=== PATIENT | female | born 1995 | race Caucasian/White ===

== ENCOUNTER 2018-01-14 09:02 | Emergency (ER) | payer OTHER ==
[2018-01-14] MEDS: NS(*) 0.9% 1000 ML BAG 1,000 ML IV ONE ×2 (09:00→09:34)
[2018-01-14] MEDS ORDERED: NS(*) 0.9% 1000 ML BAG 1,000 ML IV ONE (09:08)
[2018-01-14] MEDS: NALOXONE HCL 0.4 MG/ML VIAL IVP ONE (09:10)
[2018-01-14 09:27] LABS: PLATELET COUNT, AUTOMATED 327 K/uL (150-450)
[2018-01-14] MEDS ORDERED: MIDAZOLAM 2 MG/2 ML VIAL IVP ONE (09:40)
--- NOTE | 2018-01-14 09:54 | ER Report ---
History and Physical Time Seen By MD: 09:01 HESHAM/FLAQUITA CHIEF COMPLAINT: Altered mental status, unresponsive HISTORY OF PRESENT ILLNESS: Patient is a 22-year-old female history is limited due to urgency of condition. Patient was brought in in the back of a private vehicle after suffering a 2nd seizure this morning. According to the patient's boyfriend the patient had a few alcohol drinks last evening there is no history of report of any drug use. Boyfriend states that they went to sleep around 10 PM and patient was normal. Around 7 AM the patient had a seizure-like last approximately 2-3 minutes it was tonic-clonic in nature and the patient did have a brief postictal phase and a return to normal baseline mental status. However after she returned to being fully awake she was complaining of severe headache, that her head was on fire, and that she felt her head was going to explode. The boyfriend tried to give her some water and ibuprofen she subsequently suffered another seizure just prior to arrival to the emergency department. As far as we know the patient has no other active medical problems other than depression for which she does take medications for. Boyfriend does admit that she's had "seizures in the past" but she currently is not on any seizure medicine that we are aware of. The only medications that we could find that the patient takes is Effexor. She takes 187.5 grams daily. She had apparently in the past been on clonidine and Paxil but it is unclear whether she is currently taking these medications. REVIEW OF SYSTEMS: Review of systems is limited as patient is unresponsive Neurological: Boyfriend reports that she did complain of headache prior to seizure Psychiatric: Boyfriend reports she has a history of depression. Allergies: Coded Allergies: amoxicillin (Verified Allergy, Mild, HIVES, 01/14/18) Home Meds Reported Medications Venlafaxine Hcl (EFFEXOR XR) 150 Mg Cap.er.24h, 150 MG PO QDAY 01/14/18 Venlafaxine Hcl (EFFEXOR XR) 37.5 Mg Cap.er.24h, 37.5 MG PO QDAY 01/14/18 Past Medical/Surgical History Depression, "seizure" Smoking Status: Never Smoker Hx Alcohol Use: Yes (a "few drinks" last evening) Constitutional Vital Sign - Last 24 Hours 01/14/18 01/14/18 01/14/1801/14/18 09:10 09:39 09:58 10:00 Pulse 126 Resp 8 B/P (MAP) 157/106 (123) 150/97 (114) Pulse Ox 98 O2 Flow Rate 15.0 FiO2 35.0 01/14/18 01/14/18 01/14/18 01/14/18 10:05 10:10 10:15 10:20 Pulse 140 Resp 19 B/P (MAP) 147/94 (111) 141/84 (103) Pulse Ox 99 98 O2 Delivery Mechanical Ventilator FiO2 35.0 01/14/18 01/14/18 01/14/18 01/14/18 10:20 10:30 10:35 10:40 Temp 97.5 Pulse 152 146 Resp 26 29 B/P (MAP) 138/92 (107) 138/92 (107) 109/82 (91) Pulse Ox 99 100 FiO2 30.0 01/14/18 01/14/18 01/14/18 01/14/18 10:45 10:50 11:00 11:10 Pulse 139 134 128 Resp 41 14 13 B/P (MAP) 118/84 (95) 100/61 (74) 106/73 (84) Pulse Ox 98 100 100 01/14/18 01/14/18 11:20 11:30 Pulse 138 142 Resp 14 13 B/P (MAP) 120/83 (95) 137/98 (111) Pulse Ox 99 97 Intake and Output 01/14/18 01/14/18 01/15/18 15:00 23:00 07:00 Intake Total 1220 ml Output Total 820 ml Balance 400 ml Physical Exam General/Constitutional: Patient is obtunded with sonorous respirations. Patient has a purplish hue to the extremities Head: Normocephalic and atraumatic. Eyes: Conjunctival are injected. Pupils are slightly dilated but reactive to light with good consensual response. Patient does have a right-sided fixed gaze. Ears:External canals are clear. Tympanic membranes are clear with normal landmarks and light reflex. Nares: No rhinorrhea or bleeding. Turbinates are pink and moist. Oropharyngeal: Mucous membranes and lips are dry. There is some blood along the side of the tongue. Along with an abrasion laterally to the tongue. Neck: Supple, no adenopathy. Cardiovascular: Heart is regular but tachycardic Pulmonary: Lungs noted for decreased breath sounds bilaterally. She is using accessory muscles of respiration Abdomen: Soft, nontender, no guarding or peritoneal signs. Extremities: No gross deformities, No peripheral cyanosis. Able to move all 4 extremities. Neuro: GCS is [id number]= 7 Skin: No rashes, skin is cool and peripherally mottled. Medical Decision Making Data Points Result Diagram: 01/14/18 0910 01/14/18 0910 Laboratory Hematology Test 01/14/18 09:10 01/14/18 09:15 01/14/18 11:10 01/14/18 11:28 Red Blood Count 5.16 M/uL (4.17-5.56) Mean Corpuscular Volume 103.8 fL (80.0-96.0) Mean Corpuscular Hemoglobin 32.9 pg (26.0-33.0) Mean Corpuscular Hemoglobin Concent 31.7 g/dL (32.0-36.0) Red Cell Distribution Width 14.1 % (11.5-14.5) Mean Platelet Volume 8.8 fL (7.2-11.1) Neutrophils (%) (Auto) 70.3 % (39.4-72.5) Lymphocytes (%) (Auto) 25.0 % (17.6-49.6) Monocytes (%) (Auto) 4.0 % (4.1-12.4) Eosinophils (%) (Auto) 0.4 % (0.4-6.7) Basophils (%) (Auto) 0.3 % (0.3-1.4) Nucleated RBC Relative Count (auto) 0.0 /100WBC Neutrophils # (Auto) 12.8 K/uL (2.0-7.4) Lymphocytes # (Auto) 4.5 K/uL (1.3-3.6) Monocytes # (Auto) 0.7 K/uL (0.3-1.0) Eosinophils # (Auto) 0.1 K/uL (0.0-0.5) Basophils # (Auto) 0.1 K/uL (0.0-0.1) Nucleated RBC Absolute Count (auto) 0.01 K/uL Carboxyhemoglobin 1.8 % (< 5.0) Sodium Level 153 mmol/L (137-145) Potassium Level 4.0 mmol/L (3.5-5.0) Chloride Level 108 mmol/L (98-107) Carbon Dioxide Level < 5 mmol/L (22-31) Blood Urea Nitrogen 6 mg/dl (7-18) Creatinine 1.20 mg/dl (0.52-1.04) Glomerular Filtration Rate Calc 57.3 Random Glucose 292 mg/dl (75-110) Lactate 26.5 mmol/L (0.7-2.1) Calcium Level 10.2 mg/dl (8.4-10.2) Magnesium Level 2.6 mg/dl (1.7-2.2) Total Bilirubin 0.4 mg/dl (0.2-1.3) Aspartate Amino Transf (AST/SGOT) 33 U/L (0-35) Alanine Aminotransferase (ALT/SGPT) 27 U/L (0-56) Alkaline Phosphatase 52 U/L (0-126) Ammonia 212 UMOL/L (9-33) Total Creatine Kinase 257 U/L (30-135) Troponin I 0.052 ng/ml Total Protein 9.3 gm/dl (6.3-8.2) Albumin 5.9 g/dl (3.5-5.0) Human Chorionic Gonadotropin, Qual Negative (NEGATIVE) Salicylates Level < 10 mg/L Salicylate Last Dose Date unk Acetaminophen Level < 10 ug/ml Serum Alcohol < 10 mg/dl Acetone, Qualitative Small Urine Color Yellow Urine Clarity Slightly-cloudy Urine pH 5.0 pH (4.8-9.5) Urine Specific Tina 1.014 Urine Protein 100 mg/dL (NEGATIVE) Urine Glucose (UA) Negative mg/dL (NEGATIVE) Urine Ketones Negative mg/dL (NEGATIVE) Urine Blood Moderate (NEGATIVE) Urine Nitrite Negative (NEGATIVE) Urine Bilirubin Negative (NEGATIVE) Urine Urobilinogen Negative mg/dL (0.2-1.9) Urine Leukocyte Esterase Negative (NEGATIVE) Urine RBC <1 /HPF (0-2/HPF) Urine WBC 1 /HPF (0-5/HPF) Urine Squamous Epithelial Cells Few /LPF (NONE-FEW) Urine Amorphous Crystals Few /HPF Urine Bacteria Few /HPF (NONE-FEW) Urine Hyaline Casts Few /LPF (NONE-FEW) Urine Mucus Few /HPF (NONE-FEW) Urine Opiates Screen Negative Urine Barbiturates Screen Negative Ur Tricyclic Antidepressants Screen Negative Urine Phencyclidine Screen Negative Urine Amphetamines Screen Negative Urine Benzodiazepines Screen Negative Urine Cocaine Screen Negative Urine Cannabinoids Screen Positive CSF Appearance Clear (CLEAR) CSF Color Colorless (COLORLESS) CSF WBC 0 /mm3 (0-5) CSF RBC 1 /mm3 CSF Glucose 68 mg/dl CSF Lactate Dehydrogenase 108 U/L CSF Total Protein 45 mg/dl (15-50) Haemophilus influenzae B Antigen Negative (NEGATIVE) Neisseria meningitidis A/Y Antigen Negative (NEGATIVE) Neisseria meningitidis C/W135 Ag Negative (NEGATIVE) N. meningitidis B/E.coli K1 Ag Negative (NEGATIVE) Group B Streptococcus Antigen Negative (NEGATIVE) Streptococcus pneumoniae Antigen Negative (NEGATIVE) Influenza Virus Type A (PCR) Negative (NEGATIVE) Influenza Virus Type B (PCR) Negative (NEGATIVE) Test 01/14/18 12:08 Blood Gas Puncture Site Left radial Blood Gas Patient Temperature 97.5 DEGREES Arterial Blood pH 7.33 (7.35-7.45) Arterial Blood Partial Pressure CO2 26 mmHg (32-37) Arterial Blood Partial Pressure O2 187 mmHg (60-80) Arterial Blood HCO3 14 mmol/L (20-26) Arterial Blood Oxygen Saturation 100 % (92-100) Arterial Blood Base Excess -12.0 mmol/L [place] Test Acceptable Oxygen Liters/Minute 30% Chemistry Test 01/14/18 09:10 01/14/18 09:15 01/14/18 11:10 01/14/18 11:28 White Blood Count 18.2 k/uL (4.5-11.0) Red Blood Count 5.16 M/uL (4.17-5.56) Hemoglobin 17.0 g/dL (12.0-16.0) Hematocrit 53.6 % (34.0-47.0) Mean Corpuscular Volume 103.8 fL (80.0-96.0) Mean Corpuscular Hemoglobin 32.9 pg (26.0-33.0) Mean Corpuscular Hemoglobin Concent 31.7 g/dL (32.0-36.0) Red Cell Distribution Width 14.1 % (11.5-14.5) Platelet Count 327 K/uL (150-450) Mean Platelet Volume 8.8 fL (7.2-11.1) Neutrophils (%) (Auto) 70.3 % (39.4-72.5) Lymphocytes (%) (Auto) 25.0 % (17.6-49.6) Monocytes (%) (Auto) 4.0 % (4.1-12.4) Eosinophils (%) (Auto) 0.4 % (0.4-6.7) Basophils (%) (Auto) 0.3 % (0.3-1.4) Nucleated RBC Relative Count (auto) 0.0 /100WBC Neutrophils # (Auto) 12.8 K/uL (2.0-7.4) Lymphocytes # (Auto) 4.5 K/uL (1.3-3.6) Monocytes # (Auto) 0.7 K/uL (0.3-1.0) Eosinophils # (Auto) 0.1 K/uL (0.0-0.5) Basophils # (Auto) 0.1 K/uL (0.0-0.1) Nucleated RBC Absolute Count (auto) 0.01 K/uL Carboxyhemoglobin 1.8 % (< 5.0) Glomerular Filtration Rate Calc 57.3 Lactate 26.5 mmol/L (0.7-2.1) Calcium Level 10.2 mg/dl (8.4-10.2) Magnesium Level 2.6 mg/dl (1.7-2.2) Total Bilirubin 0.4 mg/dl (0.2-1.3) Aspartate Amino Transf (AST/SGOT) 33 U/L (0-35) Alanine Aminotransferase (ALT/SGPT) 27 U/L (0-56) Alkaline Phosphatase 52 U/L (0-126) Ammonia 212 UMOL/L (9-33) Total Creatine Kinase 257 U/L (30-135) Troponin I 0.052 ng/ml Total Protein 9.3 gm/dl (6.3-8.2) Albumin 5.9 g/dl (3.5-5.0) Human Chorionic Gonadotropin, Qual Negative (NEGATIVE) Salicylates Level < 10 mg/L Salicylate Last Dose Date unk Acetaminophen Level < 10 ug/ml Serum Alcohol < 10 mg/dl Acetone, Qualitative Small Urine Color Yellow Urine Clarity Slightly-cloudy Urine pH 5.0 pH (4.8-9.5) Urine Specific Tina 1.014 Urine Protein 100 mg/dL (NEGATIVE) Urine Glucose (UA) Negative mg/dL (NEGATIVE) Urine Ketones Negative mg/dL (NEGATIVE) Urine Blood Moderate (NEGATIVE) Urine Nitrite Negative (NEGATIVE) Urine Bilirubin Negative (NEGATIVE) Urine Urobilinogen Negative mg/dL (0.2-1.9) Urine Leukocyte Esterase Negative (NEGATIVE) Urine RBC <1 /HPF (0-2/HPF) Urine WBC 1 /HPF (0-5/HPF) Urine Squamous Epithelial Cells Few /LPF (NONE-FEW) Urine Amorphous Crystals Few /HPF Urine Bacteria Few /HPF (NONE-FEW) Urine Hyaline Casts Few /LPF (NONE-FEW) Urine Mucus Few /HPF (NONE-FEW) Urine Opiates Screen Negative Urine Barbiturates Screen Negative Ur Tricyclic Antidepressants Screen Negative Urine Phencyclidine Screen Negative Urine Amphetamines Screen Negative Urine Benzodiazepines Screen Negative Urine Cocaine Screen Negative Urine Cannabinoids Screen Positive CSF Appearance Clear (CLEAR) CSF Color Colorless (COLORLESS) CSF WBC 0 /mm3 (0-5) CSF RBC 1 /mm3 CSF Glucose 68 mg/dl CSF Lactate Dehydrogenase 108 U/L CSF Total Protein 45 mg/dl (15-50) Haemophilus influenzae B Antigen Negative (NEGATIVE) Neisseria meningitidis A/Y Antigen Negative (NEGATIVE) Neisseria meningitidis C/W135 Ag Negative (NEGATIVE) N. meningitidis B/E.coli K1 Ag Negative (NEGATIVE) Group B Streptococcus Antigen Negative (NEGATIVE) Streptococcus pneumoniae Antigen Negative (NEGATIVE) Influenza Virus Type A (PCR) Negative (NEGATIVE) Influenza Virus Type B (PCR) Negative (NEGATIVE) Test 01/14/18 12:08 Blood Gas Puncture Site Left radial Blood Gas Patient Temperature 97.5 DEGREES Arterial Blood pH 7.33 (7.35-7.45) Arterial Blood Partial Pressure CO2 26 mmHg (32-37) Arterial Blood Partial Pressure O2 187 mmHg (60-80) Arterial Blood HCO3 14 mmol/L (20-26) Arterial Blood Oxygen Saturation 100 % (92-100) Arterial Blood Base Excess -12.0 mmol/L [place] Test Acceptable Oxygen Liters/Minute 30% Toxicology Test 01/14/18 09:10 01/14/18 09:15 Salicylates Level < 10 mg/L Salicylate Last Dose Date unk Acetaminophen Level < 10 ug/ml Serum Alcohol < 10 mg/dl Acetone, Qualitative Small Urine Opiates Screen Negative Urine Barbiturates Screen Negative Ur Tricyclic Antidepressants Screen Negative Urine Phencyclidine Screen Negative Urine Amphetamines Screen Negative Urine Benzodiazepines Screen Negative Urine Cocaine Screen Negative Urine Cannabinoids Screen Positive Urinalysis Test 01/14/18 09:15 Urine Color Yellow Urine Clarity Slightly-cloudy Urine pH 5.0 pH (4.8-9.5) Urine Specific Tina 1.014 Urine Protein 100 mg/dL (NEGATIVE) Urine Glucose (UA) Negative mg/dL (NEGATIVE) Urine Ketones Negative mg/dL (NEGATIVE) Urine Blood Moderate (NEGATIVE) Urine Nitrite Negative (NEGATIVE) Urine Bilirubin Negative (NEGATIVE) Urine Urobilinogen Negative mg/dL (0.2-1.9) Urine Leukocyte Esterase Negative (NEGATIVE) Urine RBC <1 /HPF (0-2/HPF) Urine WBC 1 /HPF (0-5/HPF) Urine Squamous Epithelial Cells Few /LPF (NONE-FEW) Urine Amorphous Crystals Few /HPF Urine Bacteria Few /HPF (NONE-FEW) Urine Hyaline Casts Few /LPF (NONE-FEW) Urine Mucus Few /HPF (NONE-FEW) Microbiology Microbiology Date/Time Source Procedure Growth Status 01/14/18 11:10 Cerebrospinal Fluid Gram Stain - Final Resulted 01/14/18 11:10 Cerebrospinal Fluid CSF Culture Pending Resulted EKG/Imaging EKG Interpretation EKG shows sinus tachycardia with slightly peaked T waves. Monitor Interpretation: Sinus Tachycardia Imaging FACILITY: [facility] [place] PATIENT NAME: Jessica Cleveland : 1995 MR: [id number] V: [id number] EXAM DATE: [id number] ORDERING PHYSICIAN: KIT ANTHONY TECHNOLOGIST: Location: [facility] [place] Patient: Jessica Cleveland : 1995 Visit/Account:[id number] Date of Sevice: 01/14/2018 EXAMINATION: Head CT without intravenous contrast History: Altered mental status TECHNIQUE: Contiguous axial images were obtained from the skull base to the vertex without intravenous contrast. One of the following dose optimization techniques was utilized in the performance of this exam: Automated exposure control; adjustment of the mA and/or kV according to the patient's size; or use of an iterative reconstruction technique. Specific details can be referenced in the facility's radiology CT exam operational policy. COMPARISON STUDIES: none FINDINGS: Visualized mastoid air cells / paranasal sinuses: negative Calvarium and scalp: negative White matter: negative Dural venous sinuses / arterial structures: negative Ventricles / sulci / fissures: negative Masses / hemorrhage / midline shift: negative Extra-axial spaces: negative IMPRESSION: Normal head CT. No evidence of a mass, acute ischemia or hemorrhage. Report Dictated By: Yusuf Hopson MD at 01/14/2018 10:12 AM Report E-Signed By: Yusuf Hopson MD at 01/14/2018 10:15 AM WSN:[id number] FACILITY: [facility] [place] PATIENT NAME: Jessica Cleveland : 1995 MR: [id number] V: [id number] EXAM DATE: ORDERING PHYSICIAN: KIT ANTHONY TECHNOLOGIST: Location: [facility] [place] Patient: Jessica Cleveland : 1995 Visit/Account:[id number] Date of Sevice: 01/14/2018 CHEST SINGLE AP History: Altered mental status Comparison none. FINDINGS: Lungs are clear, no effusion. No pneumothorax. Heart size within normal limits. Mediastinal contour within normal limits. Endotracheal tube is in good position terminating 4 cm above the rodney. IMPRESSION: No evidence of acute cardiopulmonary disease. Report Dictated By: Yusuf Hopson MD at 01/14/2018 10:15 AM Report E-Signed By: Yusuf Hopson MD at 01/14/2018 10:16 AM WSN:[id number] ED Course/Re-evaluation Clinical Indication for ER IV: Hydration, IV Access ED Course 01/14/2018 9:51:41 am I obtained of the patient's prescription from their home. Patient takes 2 different dosages Effexor. She takes 37.5 mg in one tablet along with 150 mg in a 2nd tablet once per day. No other medications were identified. As the patient was unresponsive with a GCS of 7 we will have decided to secure her airway with rapid sequence intubation. Please see our psych note for details of procedure. Patient has received approximately 800 mL of normal saline. Heart rate has dropped from approximately 150 bpm to 110 bpm. Initial blood sugar upon arrival by [facility]u-[facility]k was 253 mg/dL. Patient is currently in CT scan. My concern is with a history of seizure followed by headache and subsequent seizure and concerned about possible intracranial hemorrhage. I have updated the boyfriend with regard to her condition at this standpoint. There is a high likelihood she will require transport to a higher level of care. 01/14/2018 9:53:31 am Procedure: Rapid sequence intubation. Indication for the procedure was airway protection, respiratory distress . The patient was preoxygenated with 100% oxygen by face mask. The patient was given the following IV medications: 20 mg of etomidate followed by 40 mg of rocuronium. The patient was orally endotracheally intubated under direct visualization with a 7.5 ETT. In line stabilization was performed during the procedure. Tracheal intubation was confirmed with misting on the tube; breath sounds were auscultated equally bilaterally; appropriate color change with [place] [employer] CO2 detector. . The procedure was performed by myself. ET tube was secured at 25 cm at the teeth. Chest X-ray shows ETT at approximately 4 cm above the rodney. We will advance from 25 cm at the teeth 27 cm at the teeth. 01/14/2018 10:01:53 am bloodwork showing hemoconcentration along with hypernatremia sodium correcting to 155 with a glucose of approximately 300. Potassium of 4. Patient has an elevated MCV which suggests either a pernicious anemia versus chronic alcohol use. Acetaminophen screen was negative as was salicylate screen. Drug screen only positive for cannabinoids. Because of the frequent seizures, we'll load the patient with fosphenytoin at 15 PE/kg ( estimated weight of 65kg). I will discuss the case with the on-call hospitalist. She will likely require admission to the ICU here or potentially transport to a outside facility. 01/14/2018 10:17:18 am ABG shows a pH of 6.8, PCO2 of 54, PO2 of 132, bicarbonate of 9, O2 sat of 95% on 35% FiO2, base deficit of 26 At this time we will give an amp of bicarbonate and will also increase the patient's minute ventilation. 01/14/2018 10:49:30 am I did speak with the hospitalist [facility] [place] history physical exam all pertinent data was reviewed. They will be talking to the international banker but suspect that they should be able to take the patient for admission. They're requesting a lumbar puncture as well as broad- spectrum antibiotics which we will initiate now. 01/14/2018 11:13:34 am Procedure: Lumbar puncture. Indication: Responsive Her seizure was emergent boyfriend was made aware of reasoning for procedure explaining the risks including infection, bleeding, and neurologic damage, a lumbar puncture was performed after the patient was prepped and draped in the usual fashion. The back was anesthetized with 1% lidocaine. Approximately 4 cc of clear fluid was obtained. Opening pressure was not obtained. There were no complications. The procedure was performed by myself. He comes patient had nonpurposeful movements she did receive sedation and then 40 mg of Rocuronium in order to facilitate procedure. 01/14/2018 11:14:47 am I did speak with the patient's mother regarding her daughter's ED presentation hospital course and need to transfer to higher level of care. I did relay as much information as it possibly could with regard to her workup patient is critical but stable. Mother states that she is not aware that Skyler ever had a seizure disorder. Mother has no questions or concerns at time of disposition. Re-evaluation 01/14/2018 1:55:51 pm Addendum to the chart. I received a call from Dr. Arora from [facility] for [facility] the patient appears to be doing much better is now awake and alert and extubated. She called for results of CSF which I did relay. She requested that we add on an HSV PCR to the CSF fluid, I did speak with Josie kiya in her laboratory and she will add on this study. Decision to Disposition Date: Jan 14, 2018 Decision to Disposition Time: 11:19 Critical Care Time 90 minutes (excluding procedures) of direct patient care, discusion with consultatnts and updating family on status and disposition Depart Departure Latest Vital Signs Vital Signs Date Time Temp Pulse Resp B/P (MAP) Pulse Ox O2 Delivery O2 Flow Rate FiO2 01/14/18 11:30 142 13 137/98 (111) 97 01/14/18 10:35 97.5 01/14/18 10:20 30.0 01/14/18 10:05 Mechanical Ventilator 01/14/18 09:10 15.0 Impression: Primary Impression: Unresponsive Additional Impressions: Metabolic acidosis Dehydration Condition: Critical (but stable) Disposition: XFER TO [facility] (to [facility]) Problem Qualifiers KIT ANTHONY MD Jan 14, 2018 09:54
[2018-01-14] MEDS ORDERED: FOSPHENYTOIN(*) 500 MG/10 ML V 1,000 MG in NS(*) 0.9% 100 ML BAG 80 ML IVPB ONE (10:05)
[2018-01-14] MEDS ORDERED: SODIUM BICARB 8.4% 50 MEQ/50ML IV ONE (10:10)
--- NOTE | 2018-01-14 10:20 | RADIOLOGY IMAGING REPORT ---
FAC[place]: [facility] [place] PATIENT NAME: Jessica Cleveland : 1995 MR: [id number] V: [id number] EXAM DATE: ORDERING PHYSICIAN: KIT ANTHONY TECHNOLOGIST: Location: [facility] [place] Patient: Jessica Cleveland : 1995 Visit/Account:[id number] Date of Sevice: 01/14/2018 CHEST SINGLE AP History: Altered mental status Comparison none. FINDINGS: Lungs are clear, no effusion. No pneumothorax. Heart size within normal limits. Mediastinal contour w ithin normal limits. Endotracheal tube is in good position terminating 4 cm above the rodney. IMPRESSION: No evidence of acute cardiopulmonary disease. Report Dictated By: Yusuf Hopson MD at 01/14/2018 10:15 AM Report E-Signed By: Yusuf Hopson MD at 01/14/2018 10:16 AM WSN:[id number]
--- NOTE | 2018-01-14 10:20 | RADIOLOGY IMAGING REPORT ---
FACILITY: [facility] PATIENT NAME: Jessica Cleveland : 1995 MR: [id number] V: [id number] EXAM DATE: ORDERING PHYSICIAN: KIT ANTHONY TECHNOLOGIST: Location: [facility] [place] Patient: Jessica Cleveland : 1995 Visit/Account:[id number] Date of Sevice: 01/14/2018 EXAMINATION: Head CT without intravenous contrast History: Altered mental status TECHNIQUE: Contiguous axial images were obtained from the skull base to the vertex without intraven ous contrast. One of the following dose optimization techniques was utilized in the performance of th is exam: Automated exposure control; adjustment of the mA and/or kV according to the patient's size; or use of an iterative reconstruction technique. Specific details can be referenced in the facility 's radiology CT exam operational policy. COMPARISON STUDIES: none FINDINGS: Visualized mastoid air cells / paranasal sinuses: negative Calvarium and scalp: negative White matter: negative Dural venous sinuses / arterial structures: negative Ventricles / sulci / fissures: negative Masses / hemorrhage / midline shift: negative Extra-axial spaces: negative IMPRESSION: Normal head CT. No evidence of a mass, acute ischemia or hemorrhage. Report Dictated By: Yusuf Hopson MD at 01/14/2018 10:12 AM Report E-Signed By: Yusuf Hopson MD at 01/14/2018 10:15 AM WSN:[id number]
[2018-01-14] MEDS ORDERED: ROCURONIUM BROM 10 MG/ML 10 ML IVP ONE ×2 (10:35→10:45)
[2018-01-14] MEDS ORDERED: PROPOFOL(*)1000 MG/100 ML VIAL 100 ML IV PRN (10:35)
[2018-01-14] MEDS ORDERED: ETOMIDATE 20 MG/10 ML VIAL IVP ONE (10:35)
[2018-01-14] MEDS ORDERED: fentaNYL CITR 100 MCG/2 ML AMP IVP ONE ×2 (10:35→10:50)
--- NOTE | 2018-01-14 10:38 | EKG ---
FACILITY: [facility] [place] PATIENT NAME: ROHITH SENA : [id number] MR: [id number] V: [id number] EXAM DATE: ORDERING PHYSICIAN: KIT ANTHONY TECHNOLOGIST: MANJEET Test Reason : SEIZURE Blood Pressure : / mmHG Vent. Rate : 124 BPM Atrial Rate : 124 BPM P-R Int : 156 ms QRS Dur : 092 ms QT Int : 318 ms P-R-T Axes : 078 090 082 degrees QTc Int : 456 ms Sinus tachycardia Possible biatrial enlargement Rightward axis Relatively tall T waves in limb leads and V3-6 Borderline ECG No previous ECGs available Confirmed by BARB ARTHUR ([id number]) on 01/14/2018 4:14:17 PM Referred By: GABRIELLE Confirmed By:BARB ARTHUR
[2018-01-14] MEDS ORDERED: VANCOMYCIN(*) 1 GM VIAL 2 GM in NS(*) 0.9% 250 ML BAG 250 ML IVPB ONE (10:45)
[2018-01-14] MEDS ORDERED: CEFEPIME HCL 2 GM VIAL IVP ONE (10:45)
[2018-01-14] MEDS ORDERED: metroNIDAZOLE* 500MG/100ML BAG 100 ML IVPB ONE (10:45)
[2018-01-14 11:30] VITALS: BP 137/98
[2018-01-14] MEDS ORDERED: VENL37.594 PO (11:39)
[2018-01-14] MEDS ORDERED: VENL150C61 PO (11:39)
--- NOTE | 2018-01-14 11:56 | RADIOLOGY IMAGING REPORT ---
FACILITY: [facility] - [place] PATIENT NAME: Jessica Cleveland : 1995 MR: [id number] V: [id number] EXAM DATE: ORDERING PHYSICIAN: KIT ANTHONY TECHNOLOGIST: Location: [facility] - [place] Patient: Jessica Cleveland : 1995 Visit/Account:[id number] Date of Sevice: 01/14/2018 CHEST SINGLE AP History: Positioning Comparison radiograph obtained earlier same date. FINDINGS: Lungs are clear, no effusion. No pneumothorax. Heart size within normal limits. Mediastinal contour w ithin normal limits. Endotracheal tube remains in good position. NG tube partially visualized in the lower neck. This finding was called to the care provider. IMPRESSION: No evidence of acute cardiopulmonary disease. Report Dictated By: Yusuf Hopson MD at 01/14/2018 11:48 AM Report E-Signed By: Yusuf Hopson MD at 01/14/2018 11:53 AM WSN:[id number]
[2018-01-14] MEDS ORDERED: NALOXONE HCL 2 MG/2 ML SYR IVP ONE (12:25)
== END 2018-01-14 12:27 | disposition short-term general hospital (02) ==
LOC: ER 09:14
DX: E87.2 Acidosis (principal); E86.0 Dehydration; R40.20 Unspecified coma
CPT/HCPCS: 31500; 36600; 70450; 71045; 80305; 80320; 80329; 81001; 82009; 82140; 82375; 82550; 82784; 82803; 82945; 83605; 83615; 83735; 84157; 84443; 84484; 84703; 85025; 87040; 87070; 87088; 87205; 87502; 87529; 87899; 89050; 93005; 94002; 94770; 96361; 96365; 96367; 96375; 96376; 99291; 99292; C1758; J0692; J2250; J2310; J2704; J3010; J3370; J3490; J7030; J7050; Q2009; 82040; 82247; 82310; 82374; 82435; 82565; 82947; 84075; 84132; 84155; 84295; 84450; 84460; 84520; 99285

== ENCOUNTER → 2018-01-14 | Outpatient (REF) ==
[~2018-01-14] MED LIST: VENL150C61 PO; VENL37.594 PO
== END ==
LOC: AMB 11:00
PROVIDERS: ATTEND Nurse Practitioner
DX: Z02.9 Encounter for administrative examinations, unspecified (principal)

== ENCOUNTER → 2018-02-02 | Outpatient (CLI) | payer OTHER | LOC: LAB 11:30 | PROVIDERS: ATTEND Internal Medicine Cardiovascular Disease | DX: I50.9 Heart failure, unspecified (principal) | CPT/HCPCS: 36415; 82040; 82247; 82310; 82374; 82435; 82565; 82947; 84075; 84132; 84155; 84295; 84450; 84460; 84520 ==

== ENCOUNTER → 2018-02-23 | Outpatient (CLI) | payer OTHER | LOC: LAB 08:52 | PROVIDERS: ATTEND Internal Medicine Cardiovascular Disease | DX: I50.22 Chronic systolic (congestive) heart failure (principal) | CPT/HCPCS: 36415; 82310; 82374; 82435; 82565; 82947; 83880; 84132; 84295; 84520 ==

== ENCOUNTER 2018-04-06 13:00 | Emergency (ER) | payer OTHER ==
--- NOTE | 2018-04-06 13:12 | ER Report ---
History and Physical Time Seen By MD: 13:08 HPI/ROS CHIEF COMPLAINT: Anxiety and depression HISTORY OF PRESENT ILLNESS: This is a 22-year-old female who presents to the emergency department with her boyfriend for anxiety and depression. Patient according to her boyfriend has been agitated, tearful having depressive thoughts , for possibly one week. Patient is also tried to cut herself she does have a very superficial wound to the left forearm she also been scratching her left forearm. Patient does state that she has had suicidal thoughts but does not plan on acting on these. Patient is very tearful, agitated, clenching her teeth , patient states she does not want be here but under the direction of her boyfriend and her family she did come in for further evaluation. Patient denies chest pain, shortness of breath, headaches, nausea, vomiting or diarrhea. Does use marijuana. REVIEW OF SYSTEMS: Constitutional: No fever, no chills. Eyes: No discharge. ENT: No sore throat. Cardiovascular: No chest pain, no palpitations. Respiratory: No cough, no shortness of breath. Gastrointestinal: No abdominal pain, no vomiting. Genitourinary: No hematuria. Musculoskeletal: No back pain. Skin: No rashes. Neurological: No headache. Psych: As above. Allergies: Coded Allergies: amoxicillin (Verified Allergy, Mild, HIVES, 01/14/18) venlafaxine (Verified Allergy, Unknown, SEIZURES, 04/06/18) Home Meds Discontinued Reported Medications Venlafaxine Hcl (EFFEXOR XR) 150 Mg Cap.er.24h, 150 MG PO QDAY 01/14/18 Venlafaxine Hcl (EFFEXOR XR) 37.5 Mg Cap.er.24h, 37.5 MG PO QDAY 01/14/18 Past Medical/Surgical History Patient has a past medical and surgical history of cardiomyopathy, seizures, wears glasses, depression, anxiety suicide attempt, uses marijuana. Reviewed Nurses Notes: Yes Smoking Status: Never Smoker Hx Alcohol Use: Yes (a "few drinks" last evening) Constitutional Vital Sign - Last 24 Hours 04/06/18 04/06/18 04/06/18 04/06/18 13:03 13:03 13:15 13:30 Temp 97.9 Pulse 83 92 71 Resp 16 B/P (MAP) 126/89 126/89 (101) 107/74 (85) Pulse Ox 95 98 94 O2 Delivery Room Air 04/06/18 04/06/18 04/06/18 04/06/18 13:45 14:00 14:15 14:30 Pulse 94 74 83 83 B/P (MAP) 108/82 (91) Pulse Ox 98 95 96 95 04/06/18 04/06/18 04/06/18 04/06/18 14:45 14:50 15:00 15:05 Pulse 81 70 B/P (MAP) 103/73 (83) Pulse Ox 96 96 96 04/06/18 04/06/18 04/06/18 04/06/18 15:10 15:25 15:30 15:35 Pulse 74 80 70 B/P (MAP) 103/78 (86) Pulse Ox 96 96 96 04/06/18 04/06/18 04/06/18 15:40 15:45 15:46 Pulse 81 72 B/P (MAP) 106/78 (87) Pulse Ox 96 96 Physical Exam General Appearance: The patient is alert, has no immediate need for airway protection and no signs of toxicity, very tearful and anxious. Eyes: Pupils equal and round no pallor or injection. ENT, Mouth: Mucous membranes are moist. Respiratory: There are no retractions, lungs are clear to auscultation. Cardiovascular: Regular rate and rhythm. Gastrointestinal: Abdomen is soft and non tender, no masses, bowel sounds normal. Neurological: Alert and oriented 4. Moving all extremities. Following all commands. No focal neuro deficits. Skin: Warm and dry, no rashes. Very superficial scratch davidson to the left forearm no other identifiable injuries. Musculoskeletal: Neck is supple non tender. Extremities are nontender, nonswollen and have full range of motion. Psych: Making poor eye contact, very anxious and tearful, clenching hands making fists, jaws clenched obviously very agitated. 1-2 word answers. Psych reevaluation: Making good eye contact, interacting well, not tearful, not wringing her hands, not clenching her jaw. DIFFERENTIAL DIAGNOSIS: After history and physical exam differential diagnosis was considered for psychosis, depression, anxiety, suicidal ideation. Medical Decision Making Data Points Result Diagram: 04/06/18 1447 04/06/18 1447 Laboratory Hematology Test 04/06/18 13:20 04/06/18 14:47 Urine Color Yellow Urine Clarity Slightly-cloudy Urine pH 5.0 pH (4.8-9.5) Urine Specific Bagley 1.018 Urine Protein Negative mg/dL (NEGATIVE) Urine Glucose (UA) Negative mg/dL (NEGATIVE) Urine Ketones Negative mg/dL (NEGATIVE) Urine Blood Negative (NEGATIVE) Urine Nitrite Negative (NEGATIVE) Urine Bilirubin Negative (NEGATIVE) Urine Urobilinogen Negative mg/dL (0.2-1.9) Urine Leukocyte Esterase Negative (NEGATIVE) Urine RBC None /HPF (0-2/HPF) Urine WBC 1 /HPF (0-5/HPF) Urine Squamous Epithelial Cells Many /LPF (</=FEW) Urine Bacteria Few /HPF (NONE-FEW) Urine Mucus Few /HPF (NONE-FEW) Urine HCG, Qualitative Negative (NEGATIVE) Urine Opiates Screen Negative Urine Barbiturates Screen Negative Ur Tricyclic Antidepressants Screen Negative Urine Phencyclidine Screen Negative Urine Amphetamines Screen Negative Urine Benzodiazepines Screen Negative Urine Cocaine Screen Negative Urine Cannabinoids Screen Positive Red Blood Count 4.54 M/uL (4.17-5.56) Mean Corpuscular Volume 93.2 fL (80.0-96.0) Mean Corpuscular Hemoglobin 33.1 pg (26.0-33.0) Mean Corpuscular Hemoglobin Concent 35.6 g/dL (32.0-36.0) Red Cell Distribution Width 12.8 % (11.5-14.5) Mean Platelet Volume 7.8 fL (7.2-11.1) Neutrophils (%) (Auto) 66.5 % (39.4-72.5) Lymphocytes (%) (Auto) 25.0 % (17.6-49.6) Monocytes (%) (Auto) 6.8 % (4.1-12.4) Eosinophils (%) (Auto) 1.3 % (0.4-6.7) Basophils (%) (Auto) 0.4 % (0.3-1.4) Nucleated RBC Relative Count (auto) 0.0 /100WBC Neutrophils # (Auto) 5.8 K/uL (2.0-7.4) Lymphocytes # (Auto) 2.2 K/uL (1.3-3.6) Monocytes # (Auto) 0.6 K/uL (0.3-1.0) Eosinophils # (Auto) 0.1 K/uL (0.0-0.5) Basophils # (Auto) 0.0 K/uL (0.0-0.1) Nucleated RBC Absolute Count (auto) 0.00 K/uL Sodium Level 139 mmol/L (137-145) Potassium Level 3.7 mmol/L (3.5-5.0) Chloride Level 105 mmol/L (98-107) Carbon Dioxide Level 21 mmol/L (22-31) Blood Urea Nitrogen 13 mg/dl (7-18) Creatinine 0.70 mg/dl (0.52-1.04) Glomerular Filtration Rate Calc > 60.0 Random Glucose 86 mg/dl (75-110) Calcium Level 9.5 mg/dl (8.4-10.2) Magnesium Level 1.9 mg/dl (1.7-2.2) Total Bilirubin 1.5 mg/dl (0.2-1.3) Aspartate Amino Transf (AST/SGOT) 27 U/L (0-35) Alanine Aminotransferase (ALT/SGPT) 29 U/L (0-56) Alkaline Phosphatase 43 U/L (0-126) Total Protein 7.6 g/dl (6.3-8.2) Albumin 4.6 g/dl (3.5-5.0) Salicylates Level < 10 mg/L Salicylate Last Dose Date unk Acetaminophen Level < 10 ug/ml Serum Alcohol < 10 mg/dl Chemistry Test 04/06/18 13:20 04/06/18 14:47 Urine Color Yellow Urine Clarity Slightly-cloudy Urine pH 5.0 pH (4.8-9.5) Urine Specific [place]ley 1.018 Urine Protein Negative mg/dL (NEGATIVE) Urine Glucose (UA) Negative mg/dL (NEGATIVE) Urine Ketones Negative mg/dL (NEGATIVE) Urine Blood Negative (NEGATIVE) Urine Nitrite Negative (NEGATIVE) Urine Bilirubin Negative (NEGATIVE) Urine Urobilinogen Negative mg/dL (0.2-1.9) Urine Leukocyte Esterase Negative (NEGATIVE) Urine RBC None /HPF (0-2/HPF) Urine WBC 1 /HPF (0-5/HPF) Urine Squamous Epithelial Cells Many /LPF (</=FEW) Urine Bacteria Few /HPF (NONE-FEW) Urine Mucus Few /HPF (NONE-FEW) Urine HCG, Qualitative Negative (NEGATIVE) Urine Opiates Screen Negative Urine Barbiturates Screen Negative Ur Tricyclic Antidepressants Screen Negative Urine Phencyclidine Screen Negative Urine Amphetamines Screen Negative Urine Benzodiazepines Screen Negative Urine Cocaine Screen Negative Urine Cannabinoids Screen Positive White Blood Count 8.7 k/uL (4.5-11.0) Red Blood Count 4.54 M/uL (4.17-5.56) Hemoglobin 15.0 g/dL (12.0-16.0) Hematocrit 42.3 % (34.0-47.0) Mean Corpuscular Volume 93.2 fL (80.0-96.0) Mean Corpuscular Hemoglobin 33.1 pg (26.0-33.0) Mean Corpuscular Hemoglobin Concent 35.6 g/dL (32.0-36.0) Red Cell Distribution Width 12.8 % (11.5-14.5) Platelet Count 248 K/uL (150-450) Mean Platelet Volume 7.8 fL (7.2-11.1) Neutrophils (%) (Auto) 66.5 % (39.4-72.5) Lymphocytes (%) (Auto) 25.0 % (17.6-49.6) Monocytes (%) (Auto) 6.8 % (4.1-12.4) Eosinophils (%) (Auto) 1.3 % (0.4-6.7) Basophils (%) (Auto) 0.4 % (0.3-1.4) Nucleated RBC Relative Count (auto) 0.0 /100WBC Neutrophils # (Auto) 5.8 K/uL (2.0-7.4) Lymphocytes # (Auto) 2.2 K/uL (1.3-3.6) Monocytes # (Auto) 0.6 K/uL (0.3-1.0) Eosinophils # (Auto) 0.1 K/uL (0.0-0.5) Basophils # (Auto) 0.0 K/uL (0.0-0.1) Nucleated RBC Absolute Count (auto) 0.00 K/uL Glomerular Filtration Rate Calc > 60.0 Calcium Level 9.5 mg/dl (8.4-10.2) Magnesium Level 1.9 mg/dl (1.7-2.2) Total Bilirubin 1.5 mg/dl (0.2-1.3) Aspartate Amino Transf (AST/SGOT) 27 U/L (0-35) Alanine Aminotransferase (ALT/SGPT) 29 U/L (0-56) Alkaline Phosphatase 43 U/L (0-126) Total Protein 7.6 g/dl (6.3-8.2) Albumin 4.6 g/dl (3.5-5.0) Salicylates Level < 10 mg/L Salicylate Last Dose Date unk Acetaminophen Level < 10 ug/ml Serum Alcohol < 10 mg/dl Toxicology Test 04/06/18 13:20 04/06/18 14:47 Urine Opiates Screen Negative Urine Barbiturates Screen Negative Ur Tricyclic Antidepressants Screen Negative Urine Phencyclidine Screen Negative Urine Amphetamines Screen Negative Urine Benzodiazepines Screen Negative Urine Cocaine Screen Negative Urine Cannabinoids Screen Positive Salicylates Level < 10 mg/L Salicylate Last Dose Date unk Acetaminophen Level < 10 ug/ml Serum Alcohol < 10 mg/dl Urinalysis Test 04/06/18 13:20 Urine Color Yellow Urine Clarity Slightly-cloudy Urine pH 5.0 pH (4.8-9.5) Urine Specific Bagley 1.018 Urine Protein Negative mg/dL (NEGATIVE) Urine Glucose (UA) Negative mg/dL (NEGATIVE) Urine Ketones Negative mg/dL (NEGATIVE) Urine Blood Negative (NEGATIVE) Urine Nitrite Negative (NEGATIVE) Urine Bilirubin Negative (NEGATIVE) Urine Urobilinogen Negative mg/dL (0.2-1.9) Urine Leukocyte Esterase Negative (NEGATIVE) Urine RBC None /HPF (0-2/HPF) Urine WBC 1 /HPF (0-5/HPF) Urine Squamous Epithelial Cells Many /LPF (</=FEW) Urine Bacteria Few /HPF (NONE-FEW) Urine Mucus Few /HPF (NONE-FEW) Urine HCG, Qualitative Negative (NEGATIVE) ED Course/Re-evaluation ED Course The patient was admitted to a room. A history of physical or obtained. Differential diagnoses were considered. A psych panel and urine were collected. Lab studies unremarkable. Negative urine, toxicology screen showing marijuana only. The [facility] did come down and evaluated the patient, the patient at this time was calm, relaxed and interacting well. At this time he felt that she would be safe to go home, she did not have any suicidal thoughts and he did give her information for the crisis center, she also has a boyfriend that she lives with who will be monitoring her. I did go back in for a 2nd evaluation, the patient was interacting well, making good eye contact, after further discussion the patient states that she has these fleeting thoughts of hurting herself only when she is having panic attacks, patient states that she does not want to be a burden to her boyfriend or her family however once these panic attacks pass then she has no thoughts of harming herself. The patient does have a follow-up appointment with her psychologist next week as well as her architecture technician. Note my assessment below. At this time I did feel that the patient was reasonable to go home, her boyfriend will be staying with her she is safe place, with the understanding that if she begins to have another panic attack they will return immediately and she will this time likely be admitted to the behavioral health unit where they can potentially help her with medications and providing her with local community resources. The patient and her boyfriend were in agreement with this and discharged home. 04/06/2018 3:34:14 pm I did have a rather lengthy discussion with the patient and her boyfriend. Patient is not in a manic phase right now, she is very reasonable, calm, making good eye contact, not tearful. She denies having suicidal thoughts at this time. Patient does state that she does have these fleeting thoughts touring these panic attacks and she does not want to be a burden to her boyfriend or her family but no formal plan, patient states she does not feel associated ever followed through with this. I also talked to the patient about her plan for the summer, she does have several things that she is looking forward to such as a vacation backpacking in [place], she has a dog at home, her boyfriend who lives with her who will be able to keep an eye on her tonight's monitor her with the understanding that if she begins to have another panic attack and that she will return to the emergency department for an admission to the behavioral health. The the [facility] tech did come down and evaluate the patient as well, he felt that she was reasonable and would be able to go home as well and I am in agreement with the assessment at this time. Decision to Disposition Date: Apr 06, 2018 Decision to Disposition Time: 15:37 Depart Departure Latest Vital Signs Vital Signs Date Time Temp Pulse Resp B/P (MAP) Pulse Ox O2 Delivery O2 Flow Rate FiO2 04/06/18 15:46 106/78 (87) 04/06/18 15:45 72 96 04/06/18 13:03 97.9 16 Room Air Impression: Primary Impression: Panic attack Condition: Improved Disposition: HOME OR SELF-CARE New Scripts Unable to Obtain Active Prescriptions or Reported Meds Patient Instructions: Panic Attack (ED), Suicide Prevention for Older Adults ( ED) Additional Instructions: Drink plenty of water. Get plenty of rest. Follow-up with your psychiatrist and your architecture technician next week as scheduled. Return immediately to the emergency department for any other concerns, panic attacks or any other suicidal thoughts. If you do return there is a very strong possibility that we will admit you to the behavioral health unit and the therapist can help you with medications and additional support. SIENA BLUM CAGER OPERATOR-BC Apr 06, 2018 13:11
[2018-04-06 15:04] LABS: PLATELET COUNT, AUTOMATED 248 K/uL (150-450)
[2018-04-06 15:46] VITALS: BP 106/78
== END 2018-04-06 15:48 | disposition home or self-care (01) ==
LOC: ER 13:14
DX: F41.0 Panic disorder [episodic paroxysmal anxiety] (principal)
CPT/HCPCS: 36415; 80305; 80320; 80329; 81001; 81025; 82040; 82247; 82310; 82374; 82435; 82565; 82947; 83735; 84075; 84132; 84155; 84295; 84443; 84450; 84460; 84520; 85025; 99283